=== PATIENT | male | born 1965 | race Caucasian/White ===

== ENCOUNTER 2019-03-21 17:59 | Inpatient (IN) ==
[2019-03-21] MEDS ORDERED: 0.9 % Sodium Chloride 1,000 ML IVC ONE (20:03)
[2019-03-21] MEDS ORDERED: Isovue-370 500 ML BOTTLE IVP ONE (20:03)
[2019-03-21] MEDS ORDERED: *HR* HYDROmorphone 2 MG/ML SYRINGE IVP STA (20:04)
[2019-03-21] MEDS ORDERED: Piperacillin/Tazobactam 3.375 GM in Water for inj. (sterile) 20 ML IVP ONE (20:04)
[2019-03-21 20:30] LABS: Basophils # 0.1 K/mcL (0.0-0.2); Basophils % 0.7 %; Eosinophils # 0.2 K/mcL (0.0-0.6); Hematocrit 39.6 % (37.5-50.1); Hemoglobin 13.7 g/dL (12.9-16.9); Immature Granulocytes % 5.1 % (0-4); Lymphocytes # 1.9 K/mcL (0.6-4.6); Lymphocytes % 10.2 %; Mean Corpuscular HGB Conc 34.6 g/dL (31.6-35.5); Mean Corpuscular Volume 83.9 fL (83.0-100.0); Mean Platelet Volume 10.8 fL (9.4-12.4); Monocytes # 1.3 K/mcL (0.0-1.3); Neutrophils # 14.3 K/mcL (1.6-8.9); Platelet Count 491 K/mcL (140-400); Red Blood Count 4.72 M/mcL (4.19-5.50); Red Cell Distribution Width 13.5 % (11.5-14.5); White Blood Count 18.8 K/mcL (4.3-11.1)
[2019-03-21 20:50] LABS: BUN/Creatinine Ratio 24 (6-26); Blood Urea Nitrogen 16 mg/dL (6-20); C-Reactive Protein > 300 mg/L (Less than 10); Calcium 9.4 mg/dL (8.6-10.3); Carbon Dioxide 24 mEq/L (23-29); Chloride 93 mEq/L (98-107); Glucose 259 mg/dL (70-105); Osmolality,Calculated 280 (280-300); Sodium 130 mEq/L (136-145); eGFR For African Americans > 60 (> 60); eGFR For Non-African Americans > 60 (> 60)
[2019-03-21 20:55] LABS: Reactive Lymphocytes Present (Not Present)
[2019-03-21 22:39] LABS: INR 1.3; Prothrombin Time 14.9 Seconds (9.4-12.1)
[2019-03-21 22:42] LABS: Activated Partial Thrombo Time 26.8 Seconds (26.0-36.0)
[2019-03-21] MEDS ORDERED: Ondansetron 4 MG/2 ML VIAL IVP ONE (22:46)
[2019-03-21] MEDS ORDERED: *HR* Meperidine 25 MG/ML SYRINGE IVP PRN (22:46)
[2019-03-21] MEDS ORDERED: *HR* Promethazine 25 MG/ML VIAL IVP PRN (22:46)
[2019-03-21] MEDS ORDERED: Lidocaine -MPF 2% 2 ML VIAL ONE (22:56)
[2019-03-21] MEDS ORDERED: *HR* Rocuronium Bromide 50 MG/5 ML VIAL ONE (22:56)
[2019-03-21] MEDS ORDERED: Lidocaine HCL 4 ML Topical Solution (Laryng-O-Jet Kit Sterile Pak) TP ONE (22:56)
[2019-03-21] MEDS ORDERED: *HR* FentaNYL (PF) 100 MCG/2 ML VIAL ONE (22:56)
[2019-03-21] MEDS ORDERED: *HR* Propofol 200 MG/20 ML VIAL IVP ONE (22:56)
[2019-03-21] MEDS ORDERED: *HR* Midazolam HCl 2 MG/2 ML VIAL ONE (22:56)
[2019-03-21] MEDS ORDERED: Acetaminophen IV 1,000 MG/100 ML INFUS..BTL ONE (23:07)
[2019-03-21] MEDS ORDERED: Ondansetron 4 MG/2 ML VIAL ONE (23:21)
[2019-03-21] MEDS ORDERED: Dexamethasone 4 MG/ML VIAL ONE (23:21)
[2019-03-22] MEDS ORDERED: Dextrose Gel 15 GM/37.5 ML TUBE PO PRN ×6 (00:05→09:27)
[2019-03-22] MEDS ORDERED: Morphine Sulfate Oral CONC 10 MG/0.5 ML ORAL.SYG SL PRN (00:05)
[2019-03-22] MEDS ORDERED: Ondansetron 4 MG/2 ML VIAL IVP PRN ×2 (00:05→00:53)
[2019-03-22] MEDS ORDERED: D5% in Water 1,000 ML IVC PRN ×3 (00:05→09:27)
[2019-03-22] MEDS ORDERED: *HR* Dextrose 50 % in Water (Syg) 50 ML SYRINGE IVP PRN ×3 (00:05→09:27)
[2019-03-22] MEDS: *HR* HYDROmorphone (PF) 1 MG/ML SYRINGE IVP PRN ×2 (00:27→00:32)
[2019-03-22] MEDS: 0.9 % Sodium Chloride 1,000 ML IVC SCH ×3 (01:43→17:56)
[2019-03-22] MEDS: Acetaminophen IV 1,000 MG/100 ML INFUS..BTL IVPB SCH ×4 (05:33→23:30)
[2019-03-22] MEDS: Morphine Sulfate Oral CONC 10 MG/0.5 ML ORAL.SYG SL PRN ×2 (05:34→16:31)
[2019-03-22] MEDS: Ketorolac 30 MG/ML VIAL IVP SCH ×4 (05:34→23:29)
[2019-03-22] MEDS: *HR* Heparin 5,000 UNIT/ML VIAL SQ SCH ×2 (05:35→17:57)
[2019-03-22] MEDS ORDERED: Ketorolac 30 MG/ML VIAL IVP SCH (06:00)
[2019-03-22] MEDS ORDERED: *HR* Heparin 5,000 UNIT/ML VIAL SQ SCH (06:00)
[2019-03-22] MEDS ORDERED: Insulin LISPRO 300 UNITS/3 ML VIAL SQ SCH ×2 (06:00)
[2019-03-22] MEDS ORDERED: Acetaminophen IV 1,000 MG/100 ML INFUS..BTL IVPB SCH (06:00)
[2019-03-22 06:55] LABS: Hematocrit 37.6 % (37.5-50.1); Hemoglobin 12.5 g/dL (12.9-16.9); Mean Corpuscular HGB Conc 33.2 g/dL (31.6-35.5); Mean Corpuscular Hemoglobin 28.7 pg (28.0-33.3); Mean Corpuscular Volume 86.2 fL (83.0-100.0); Mean Platelet Volume 10.7 fL (9.4-12.4); Platelet Count 468 K/mcL (140-400); Red Blood Count 4.36 M/mcL (4.19-5.50); Red Cell Distribution Width 13.9 % (11.5-14.5); White Blood Count 19.9 K/mcL (4.3-11.1)
[2019-03-22 07:15] LABS: BUN/Creatinine Ratio 26 (6-26); Blood Urea Nitrogen 19 mg/dL (6-20); Calcium 8.3 mg/dL (8.6-10.3); Carbon Dioxide 22 mEq/L (23-29); Chloride 96 mEq/L (98-107); Glucose 345 mg/dL (70-105); Osmolality,Calculated 290 (280-300); Potassium 3.6 mEq/L (3.5-5.1); Sodium 132 mEq/L (136-145); eGFR For African Americans > 60 (> 60); eGFR For Non-African Americans > 60 (> 60)
[2019-03-22 07:22] LABS: Lymphocytes # 1.6 K/mcL (0.6-4.6); Monocytes # 0.4 K/mcL (0.0-1.3); Neutrophils # 17.9 K/mcL (1.6-8.9)
[2019-03-22 07:23] LABS: Platelet Estimate Increased (Normal)
[2019-03-22 07:24] LABS: Reactive Lymphocytes Present (Not Present)
[2019-03-22] MEDS ORDERED: Piperacillin/Tazobactam 3.375 GM in 0.9 % Sodium Chloride Mini Bag 100 ML IVPB SCH (08:00)
[2019-03-22] MEDS: Piperacillin/Tazobactam 3.375 GM in 0.9 % Sodium Chloride Mini Bag 100 ML IVPB SCH ×3 (08:59→23:30)
[2019-03-22] MEDS ORDERED: Insulin DETEMIR 100 UNIT/ML X5UNITS SQ SCH ×2 (10:00→21:00)
[2019-03-22] MEDS: Insulin LISPRO 300 UNITS/3 ML VIAL SQ SCH ×2 (12:46→17:56)
[2019-03-22] MEDS ORDERED: Insulin Human Regular 10 UNIT in 0.9 % Sodium Chloride 10 ML IV ONE (21:30)
[2019-03-23] MEDS ORDERED: Insulin Human Regular 10 UNIT in 0.9 % Sodium Chloride 10 ML IV ONE ×2 (00:26→05:00)
[2019-03-23] MEDS ORDERED: Insulin DETEMIR 100 UNIT/ML X5UNITS SQ ONE (02:01)
[2019-03-23] MEDS: 0.9 % Sodium Chloride 1,000 ML IVC SCH ×2 (02:45→12:00)
[2019-03-23] MEDS: Morphine Sulfate Oral CONC 10 MG/0.5 ML ORAL.SYG SL PRN ×4 (04:24→20:34)
[2019-03-23 05:36] LABS: Hematocrit 32.2 % (37.5-50.1); Mean Corpuscular HGB Conc 34.2 g/dL (31.6-35.5); Mean Corpuscular Hemoglobin 29.2 pg (28.0-33.3); Mean Corpuscular Volume 85.4 fL (83.0-100.0); Platelet Count 464 K/mcL (140-400); Red Blood Count 3.77 M/mcL (4.19-5.50); Red Cell Distribution Width 14.2 % (11.5-14.5); White Blood Count 18.8 K/mcL (4.3-11.1)
[2019-03-23] MEDS: Ketorolac 30 MG/ML VIAL IVP SCH ×3 (05:38→18:11)
[2019-03-23] MEDS: *HR* Heparin 5,000 UNIT/ML VIAL SQ SCH ×2 (05:38→18:11)
[2019-03-23] MEDS: Acetaminophen IV 1,000 MG/100 ML INFUS..BTL IVPB SCH ×3 (05:39→18:12)
[2019-03-23 05:57] LABS: BUN/Creatinine Ratio 27 (6-26); Blood Urea Nitrogen 22 mg/dL (6-20); Calcium 7.4 mg/dL (8.6-10.3); Carbon Dioxide 25 mEq/L (23-29); Chloride 101 mEq/L (98-107); Glucose 326 mg/dL (70-105); Magnesium 2.1 mg/dL (1.6-2.6); Osmolality,Calculated 288 (280-300); Potassium 2.9 mEq/L (3.5-5.1); Sodium 131 mEq/L (136-145); eGFR For African Americans > 60 (> 60); eGFR For Non-African Americans > 60 (> 60)
[2019-03-23 06:19] LABS: Eosinophils # 0.4 K/mcL (0.0-0.6); Lymphocytes # 2.1 K/mcL (0.6-4.6); Monocytes # 0.4 K/mcL (0.0-1.3)
[2019-03-23 06:20] LABS: Platelet Estimate Increased (Normal); Smudge Cells Present (Not Present); Toxic Granulation Present (Not Present)
[2019-03-23] MEDS ORDERED: *HR* Dextrose 50 % in Water (Syg) 50 ML SYRINGE IVP PRN (08:11)
[2019-03-23] MEDS ORDERED: D5% in Water 1,000 ML IVC PRN (08:11)
[2019-03-23] MEDS ORDERED: Dextrose Gel 15 GM/37.5 ML TUBE PO PRN ×2 (08:11)
[2019-03-23 08:38] LABS: Estimated Average Glucose 243 mg/dl
[2019-03-23] MEDS: Insulin LISPRO 300 UNITS/3 ML VIAL SQ SCH ×6 (08:57→18:11)
[2019-03-23] MEDS: Piperacillin/Tazobactam 3.375 GM in 0.9 % Sodium Chloride Mini Bag 100 ML IVPB SCH ×2 (08:58→16:00)
[2019-03-23] MEDS: Potassium Chloride Elixir 20 MEQ/15 ML UDC PO SCH ×2 (08:58→12:48)
[2019-03-23] MEDS: Insulin DETEMIR 100 UNIT/ML X5UNITS SQ SCH ×2 (10:01→20:38)
[2019-03-24] MEDS: Ketorolac 30 MG/ML VIAL IVP SCH ×4 (01:12→17:44)
[2019-03-24] MEDS: Piperacillin/Tazobactam 3.375 GM in 0.9 % Sodium Chloride Mini Bag 100 ML IVPB SCH ×3 (01:12→15:49)
[2019-03-24] MEDS: Acetaminophen IV 1,000 MG/100 ML INFUS..BTL IVPB SCH ×4 (04:17→17:45)
[2019-03-24] MEDS: *HR* Heparin 5,000 UNIT/ML VIAL SQ SCH ×2 (06:14→17:44)
[2019-03-24] MEDS: Insulin DETEMIR 100 UNIT/ML X5UNITS SQ SCH ×2 (07:37→20:21)
[2019-03-24] MEDS: Insulin LISPRO 300 UNITS/3 ML VIAL SQ SCH ×6 (07:41→16:26)
[2019-03-24] MEDS: Morphine Sulfate Oral CONC 10 MG/0.5 ML ORAL.SYG SL PRN (09:37)
[2019-03-24 10:53] LABS: Basophils # 0.2 K/mcL (0.0-0.2); Basophils % 0.8 %; Eosinophils # 0.1 K/mcL (0.0-0.6); Eosinophils % 0.6 %; Hematocrit 34.9 % (37.5-50.1); Hemoglobin 11.7 g/dL (12.9-16.9); Immature Granulocytes % 4.7 % (0-4); Lymphocytes # 2.9 K/mcL (0.6-4.6); Lymphocytes % 15.5 %; Mean Corpuscular HGB Conc 33.5 g/dL (31.6-35.5); Mean Corpuscular Hemoglobin 28.7 pg (28.0-33.3); Mean Corpuscular Volume 85.7 fL (83.0-100.0); Mean Platelet Volume 11.2 fL (9.4-12.4); Monocytes # 0.9 K/mcL (0.0-1.3); Monocytes % 4.7 %; Neutrophils # 13.8 K/mcL (1.6-8.9); Platelet Count 513 K/mcL (140-400); Red Blood Count 4.07 M/mcL (4.19-5.50); Red Cell Distribution Width 14.8 % (11.5-14.5); Segmented Neutrophils % 73.7 %; White Blood Count 18.7 K/mcL (4.3-11.1)
[2019-03-24 11:08] LABS: BUN/Creatinine Ratio 34 (6-26); Blood Urea Nitrogen 21 mg/dL (6-20); Calcium 7.9 mg/dL (8.6-10.3); Carbon Dioxide 21 mEq/L (23-29); Chloride 105 mEq/L (98-107); Glucose 124 mg/dL (70-105); Osmolality,Calculated 284 (280-300); Potassium 3.2 mEq/L (3.5-5.1); Sodium 135 mEq/L (136-145); eGFR For African Americans > 60 (> 60); eGFR For Non-African Americans > 60 (> 60)
[2019-03-24] MEDS: *HR* Metformin 500 MG TABLET PO SCH (20:20)
[2019-03-25] MEDS: Ketorolac 30 MG/ML VIAL IVP SCH ×2 (00:28→06:20)
[2019-03-25] MEDS: Acetaminophen IV 1,000 MG/100 ML INFUS..BTL IVPB SCH ×4 (00:29→17:54)
[2019-03-25] MEDS: Piperacillin/Tazobactam 3.375 GM in 0.9 % Sodium Chloride Mini Bag 100 ML IVPB SCH ×3 (01:07→16:00)
[2019-03-25] MEDS: *HR* Heparin 5,000 UNIT/ML VIAL SQ SCH ×2 (06:20→17:58)
[2019-03-25 06:29] LABS: Basophils % 0.3 %; Eosinophils # 0.2 K/mcL (0.0-0.6); Eosinophils % 1.6 %; Hematocrit 32.3 % (37.5-50.1); Hemoglobin 10.7 g/dL (12.9-16.9); Immature Granulocytes % 4.6 % (0-4); Lymphocytes # 2.7 K/mcL (0.6-4.6); Lymphocytes % 19.6 %; Mean Corpuscular HGB Conc 33.1 g/dL (31.6-35.5); Mean Corpuscular Hemoglobin 29.1 pg (28.0-33.3); Mean Corpuscular Volume 87.8 fL (83.0-100.0); Mean Platelet Volume 10.2 fL (9.4-12.4); Monocytes # 0.7 K/mcL (0.0-1.3); Monocytes % 4.9 %; Neutrophils # 9.4 K/mcL (1.6-8.9); Nucleated Red Blood Cells 0.1 /100 WBC (0); Platelet Count 546 K/mcL (140-400); Red Blood Count 3.68 M/mcL (4.19-5.50); White Blood Count 13.6 K/mcL (4.3-11.1)
[2019-03-25 06:51] LABS: BUN/Creatinine Ratio 26 (6-26); Blood Urea Nitrogen 18 mg/dL (6-20); Calcium 8.1 mg/dL (8.6-10.3); Carbon Dioxide 28 mEq/L (23-29); Chloride 107 mEq/L (98-107); Glucose 128 mg/dL (70-105); Osmolality,Calculated 288 (280-300); Potassium 3.2 mEq/L (3.5-5.1); Sodium 137 mEq/L (136-145); eGFR For African Americans > 60 (> 60); eGFR For Non-African Americans > 60 (> 60)
[2019-03-25] MEDS: *HR* Metformin 500 MG TABLET PO SCH ×2 (07:55→16:32)
[2019-03-25] MEDS: Insulin LISPRO 300 UNITS/3 ML VIAL SQ SCH ×6 (08:27→16:32)
[2019-03-25] MEDS: Insulin DETEMIR 100 UNIT/ML X5UNITS SQ SCH ×2 (08:28→20:46)
[2019-03-25] MEDS ORDERED: (Empagliflozin [Jardiance] 10 MG) PO SCH (09:00)
[2019-03-25] MEDS: Potassium Chloride Elixir 20 MEQ/15 ML UDC PO SCH ×2 (09:08→11:47)
[2019-03-26] MEDS: Acetaminophen IV 1,000 MG/100 ML INFUS..BTL IVPB SCH ×3 (00:32→11:36)
[2019-03-26] MEDS: Piperacillin/Tazobactam 3.375 GM in 0.9 % Sodium Chloride Mini Bag 100 ML IVPB SCH ×3 (00:56→16:30)
[2019-03-26] MEDS: Morphine Sulfate Oral CONC 10 MG/0.5 ML ORAL.SYG SL PRN ×3 (04:32→13:02)
[2019-03-26] MEDS: *HR* Heparin 5,000 UNIT/ML VIAL SQ SCH ×2 (05:56→17:34)
[2019-03-26 06:32] LABS: Basophils # 0.1 K/mcL (0.0-0.2); Basophils % 0.6 %; Eosinophils # 0.3 K/mcL (0.0-0.6); Eosinophils % 2.3 %; Hematocrit 32.1 % (37.5-50.1); Hemoglobin 10.5 g/dL (12.9-16.9); Lymphocytes # 2.6 K/mcL (0.6-4.6); Lymphocytes % 19.2 %; Mean Corpuscular HGB Conc 32.7 g/dL (31.6-35.5); Mean Corpuscular Hemoglobin 28.6 pg (28.0-33.3); Mean Corpuscular Volume 87.5 fL (83.0-100.0); Mean Platelet Volume 10.7 fL (9.4-12.4); Monocytes # 0.8 K/mcL (0.0-1.3); Monocytes % 5.9 %; Neutrophils # 8.8 K/mcL (1.6-8.9); Nucleated Red Blood Cells 0.2 /100 WBC (0); Platelet Count 587 K/mcL (140-400); Red Blood Count 3.67 M/mcL (4.19-5.50); Red Cell Distribution Width 15.1 % (11.5-14.5); White Blood Count 13.3 K/mcL (4.3-11.1)
[2019-03-26 06:54] LABS: BUN/Creatinine Ratio 23 (6-26); Blood Urea Nitrogen 14 mg/dL (6-20); Calcium 8.2 mg/dL (8.6-10.3); Carbon Dioxide 26 mEq/L (23-29); Chloride 104 mEq/L (98-107); Glucose 91 mg/dL (70-105); Osmolality,Calculated 284 (280-300); Potassium 3.3 mEq/L (3.5-5.1); Sodium 137 mEq/L (136-145); eGFR For African Americans > 60 (> 60); eGFR For Non-African Americans > 60 (> 60)
[2019-03-26 07:29] LABS: Platelet Estimate Normal (Normal); Toxic Granulation Present (Not Present)
[2019-03-26] MEDS: Insulin LISPRO 300 UNITS/3 ML VIAL SQ SCH ×5 (07:34→17:32)
[2019-03-26] MEDS: *HR* Metformin 500 MG TABLET PO SCH (08:19)
[2019-03-26] MEDS: Potassium Chloride Elixir 20 MEQ/15 ML UDC PO SCH ×2 (08:20→11:35)
[2019-03-26] MEDS: Insulin DETEMIR 100 UNIT/ML X5UNITS SQ SCH ×2 (08:34→20:53)
[2019-03-26] MEDS ORDERED: Lidocaine Jelly 11 ml Syringe TP ONE (09:05)
[2019-03-26] MEDS ORDERED: Ibuprofen 600 MG TABLET PO PRN (12:05)
[2019-03-26] MEDS ORDERED: Acetaminophen 325 MG TABLET PO PRN (12:05)
[2019-03-26] MEDS ORDERED: *HR* FentaNYL (PF) 100 MCG/2 ML VIAL IVP PRN (14:55)
[2019-03-27] MEDS: Piperacillin/Tazobactam 3.375 GM in 0.9 % Sodium Chloride Mini Bag 100 ML IVPB SCH ×3 (01:18→16:10)
[2019-03-27] MEDS: Morphine Sulfate Oral CONC 10 MG/0.5 ML ORAL.SYG SL PRN ×2 (01:32→08:37)
[2019-03-27] MEDS: *HR* Heparin 5,000 UNIT/ML VIAL SQ SCH (04:13)
[2019-03-27 07:39] LABS: Hematocrit 33.3 % (37.5-50.1); Hemoglobin 10.9 g/dL (12.9-16.9); Mean Corpuscular HGB Conc 32.7 g/dL (31.6-35.5); Mean Corpuscular Hemoglobin 29.2 pg (28.0-33.3); Mean Corpuscular Volume 89.3 fL (83.0-100.0); Mean Platelet Volume 10.1 fL (9.4-12.4); Nucleated Red Blood Cells 0.2 /100 WBC (0); Platelet Count 595 K/mcL (140-400); Red Blood Count 3.73 M/mcL (4.19-5.50); Red Cell Distribution Width 15.6 % (11.5-14.5); White Blood Count 10.6 K/mcL (4.3-11.1)
[2019-03-27 07:45] LABS: INR 1.1; Prothrombin Time 12.6 Seconds (9.4-12.1)
[2019-03-27 07:58] LABS: BUN/Creatinine Ratio 19 (6-26); Blood Urea Nitrogen 12 mg/dL (6-20); Calcium 8.3 mg/dL (8.6-10.3); Carbon Dioxide 27 mEq/L (23-29); Chloride 106 mEq/L (98-107); Glucose 199 mg/dL (70-105); Osmolality,Calculated 283 (280-300); Sodium 134 mEq/L (136-145); eGFR For African Americans > 60 (> 60); eGFR For Non-African Americans > 60 (> 60)
[2019-03-27] MEDS: Insulin LISPRO 300 UNITS/3 ML VIAL SQ SCH ×2 (07:59→11:52)
[2019-03-27 08:03] LABS: Eosinophils # 0.2 K/mcL (0.0-0.6); Lymphocytes # 1.7 K/mcL (0.6-4.6); Monocytes # 0.9 K/mcL (0.0-1.3); Neutrophils # 7.8 K/mcL (1.6-8.9)
[2019-03-27] MEDS ORDERED: 0.9 % Sodium Chloride 1,000 ML ONE (08:04)
[2019-03-27] MEDS: Insulin DETEMIR 100 UNIT/ML X5UNITS SQ SCH ×2 (08:19→22:00)
[2019-03-27] MEDS ORDERED: Ondansetron 4 MG/2 ML VIAL ONE (10:54)
[2019-03-27] MEDS ORDERED: Lidocaine -MPF 2% 2 ML VIAL ONE (10:54)
[2019-03-27] MEDS ORDERED: Dexamethasone 4 MG/ML VIAL ONE (10:54)
[2019-03-27] MEDS ORDERED: *HR* Propofol 200 MG/20 ML VIAL IVP ONE (10:55)
[2019-03-27] MEDS ORDERED: *HR* FentaNYL (PF) 100 MCG/2 ML VIAL ONE (10:55)
[2019-03-27] MEDS ORDERED: traMADol 50 MG TABLET PO PRN ×2 (11:20→16:33)
[2019-03-27] MEDS ORDERED: *HR* OxyCODONE Immed Rel 5 MG TABLET PO PRN ×5 (11:20→16:59)
[2019-03-27] MEDS ORDERED: *HR* HYDROmorphone (PF) 1 MG/ML SYRINGE IVP PRN ×4 (11:20→16:33)
[2019-03-27] MEDS ORDERED: Ringers Solution, Lactated 1,000 ML IVC SCH ×4 (11:30→16:33)
[2019-03-27] MEDS ORDERED: *HR* Promethazine 25 MG/ML VIAL IVP PRN ×2 (12:05→16:33)
[2019-03-27] MEDS ORDERED: Ketorolac 30 MG/ML VIAL IVP ONE ×2 (12:05→16:33)
[2019-03-27] MEDS ORDERED: Lidocaine -MPF 4% 5 ML AMPUL ONE (12:13)
[2019-03-27] MEDS ORDERED: *HR* Succinylcholine 200 MG/10 ML VIAL IVP ONE (12:13)
[2019-03-27] MEDS ORDERED: *HR* HYDROMORPHONE 2 MG/ML VIAL ONE (12:45)
[2019-03-27] MEDS ORDERED: *HR* Dextrose 50 % in Water (Syg) 50 ML SYRINGE IVP PRN (16:33)
[2019-03-27] MEDS ORDERED: Dextrose Gel 15 GM/37.5 ML TUBE PO PRN ×2 (16:33)
[2019-03-27] MEDS ORDERED: Ibuprofen 600 MG TABLET PO PRN (16:33)
[2019-03-27] MEDS ORDERED: *HR* FentaNYL (PF) 100 MCG/2 ML VIAL IVP PRN (16:33)
[2019-03-27] MEDS ORDERED: D5% in Water 1,000 ML IVC PRN (16:33)
[2019-03-27] MEDS ORDERED: Ondansetron 4 MG/2 ML VIAL IVP PRN (16:33)
[2019-03-27] MEDS ORDERED: Acetaminophen 325 MG TABLET PO PRN (16:33)
[2019-03-28] MEDS: *HR* Heparin 5,000 UNIT/ML VIAL SQ SCH ×3 (00:05→17:00)
[2019-03-28] MEDS: Piperacillin/Tazobactam 3.375 GM in 0.9 % Sodium Chloride Mini Bag 100 ML IVPB SCH ×3 (00:33→17:00)
[2019-03-28] MEDS: Insulin LISPRO 300 UNITS/3 ML VIAL SQ SCH ×3 (07:50→19:23)
[2019-03-28] MEDS: Insulin DETEMIR 100 UNIT/ML X5UNITS SQ SCH ×2 (11:08→21:37)
[2019-03-28] MEDS: Morphine Sulfate Oral CONC 10 MG/0.5 ML ORAL.SYG SL PRN ×2 (13:49→19:00)
[2019-03-29] MEDS: Morphine Sulfate Oral CONC 10 MG/0.5 ML ORAL.SYG SL PRN ×4 (00:23→22:22)
[2019-03-29] MEDS: Piperacillin/Tazobactam 3.375 GM in 0.9 % Sodium Chloride Mini Bag 100 ML IVPB SCH ×3 (00:24→16:39)
[2019-03-29] MEDS: *HR* Heparin 5,000 UNIT/ML VIAL SQ SCH ×2 (05:41→18:08)
[2019-03-29 09:13] LABS: Hematocrit 32.9 % (37.5-50.1); Hemoglobin 10.6 g/dL (12.9-16.9); Mean Corpuscular HGB Conc 32.2 g/dL (31.6-35.5); Mean Corpuscular Hemoglobin 28.6 pg (28.0-33.3); Mean Corpuscular Volume 88.7 fL (83.0-100.0); Mean Platelet Volume 9.6 fL (9.4-12.4); Platelet Count 649 K/mcL (140-400); Red Blood Count 3.71 M/mcL (4.19-5.50); Red Cell Distribution Width 15.1 % (11.5-14.5); White Blood Count 10.7 K/mcL (4.3-11.1)
[2019-03-29 09:32] LABS: BUN/Creatinine Ratio 15 (6-26); Blood Urea Nitrogen 10 mg/dL (6-20); Calcium 8.1 mg/dL (8.6-10.3); Carbon Dioxide 29 mEq/L (23-29); Chloride 102 mEq/L (98-107); Glucose 164 mg/dL (70-105); Osmolality,Calculated 285 (280-300); Potassium 3.9 mEq/L (3.5-5.1); Sodium 136 mEq/L (136-145); eGFR For African Americans > 60 (> 60); eGFR For Non-African Americans > 60 (> 60)
[2019-03-29] MEDS: Insulin LISPRO 300 UNITS/3 ML VIAL SQ SCH ×3 (09:57→16:40)
[2019-03-29] MEDS: Insulin DETEMIR 100 UNIT/ML X5UNITS SQ SCH ×2 (10:09→20:51)
[2019-03-30] MEDS: Piperacillin/Tazobactam 3.375 GM in 0.9 % Sodium Chloride Mini Bag 100 ML IVPB SCH ×2 (00:11→09:09)
[2019-03-30] MEDS: Morphine Sulfate Oral CONC 10 MG/0.5 ML ORAL.SYG SL PRN ×2 (03:58→10:54)
[2019-03-30] MEDS: *HR* Heparin 5,000 UNIT/ML VIAL SQ SCH (05:32)
[2019-03-30 05:55] LABS: Hematocrit 30.6 % (37.5-50.1); Hemoglobin 9.9 g/dL (12.9-16.9); Mean Corpuscular HGB Conc 32.4 g/dL (31.6-35.5); Mean Corpuscular Volume 89.7 fL (83.0-100.0); Mean Platelet Volume 9.6 fL (9.4-12.4); Nucleated Red Blood Cells 0.2 /100 WBC (0); Platelet Count 650 K/mcL (140-400); Red Blood Count 3.41 M/mcL (4.19-5.50); Red Cell Distribution Width 14.9 % (11.5-14.5); White Blood Count 11.5 K/mcL (4.3-11.1)
[2019-03-30 06:33] LABS: Eosinophils # 0.2 K/mcL (0.0-0.6); Monocytes # 0.7 K/mcL (0.0-1.3); Neutrophils # 4.6 K/mcL (1.6-8.9)
[2019-03-30] MEDS: Insulin LISPRO 300 UNITS/3 ML VIAL SQ SCH (09:06)
[2019-03-30] MEDS: Insulin DETEMIR 100 UNIT/ML X5UNITS SQ SCH (09:07)
[2019-03-30] MEDS ORDERED: Lidocaine Jelly 11 ml Syringe TP ONE (10:32)
[2019-03-30 10:40] VITALS: BP 129/69
== END 2019-03-30 14:50 | disposition home health service (06) | DRG 570 ==
LOC: 3ANU 17:59 → EMEROOARM 17:59 → 3ANU 22:52 → SUATTDRO 22:54
PROVIDERS: ADMIT Internal Medicine; ATTEND Internal Medicine